=== PATIENT | male | born 1940 | race Caucasian/White ===

== ENCOUNTER 2022-08-20 11:21 | Inpatient (IN) | payer OTHER, MEDICARE ==
[2022-08-20 13:42] VITALS: BP 146/86; PULSE 98
== END 2022-08-25 10:00 | disposition swing bed (61) | DRG 951 ==
LOC: CC.MS 12:32
PROVIDERS: ADMIT Nurse Practitioner Family; ATTEND Nurse Practitioner Family
DX: Z75.5 Holiday relief care (principal); Z66 Do not resuscitate
CPT/HCPCS: 51702

== ENCOUNTER 2022-08-25 10:00 | Inpatient (IN) | payer MEDICARE, OTHER ==
[2022-08-25] MEDS ORDERED: Haloperidol Lactate 2 MG/ML Oral Soln 15 ML Bottle PO PRN (10:48)
[2022-08-25] MEDS ORDERED: LORazepam Conc Solution 2 MG/ML 30 ML Bottle PO PRN (10:49)
[2022-08-25] MEDS ORDERED: Morphine Oral Concentrate 20 MG/ML 30 ML Bottle PO SCH (11:00)
[2022-08-25] MEDS ORDERED: Morphine Oral Concentrate 20 MG/ML 30 ML Bottle PO PRN (11:07)
[2022-08-25] MEDS: Morphine Oral Concentrate 20 MG/ML 30 ML Bottle PO SCH ×3 (13:11→22:56)
[2022-08-25 14:35] VITALS: PULSE 112
[2022-08-26] MEDS: Morphine Oral Concentrate 20 MG/ML 30 ML Bottle PO SCH ×7 (02:04→23:56)
[2022-08-27] MEDS: Morphine Oral Concentrate 20 MG/ML 30 ML Bottle PO SCH ×5 (04:02→20:46)
[2022-08-27] MEDS ORDERED: LORAZEPAM 2 MG/ML PO PRN (10:45)
[2022-08-27] MEDS ORDERED: DOCUSATE SODIUM PO PRN (10:45)
[2022-08-27] MEDS ORDERED: Morphine Oral Concentrate 20 MG/ML 30 ML Bottle PO SCH (10:45)
[2022-08-27] MEDS ORDERED: Ondansetron 4 MG Tab.DIS **PTOM PO PRN (10:45)
[2022-08-27] MEDS ORDERED: Morphine Oral Concentrate 20 MG/ML 30 ML Bottle PO PRN (10:45)
[2022-08-27] MEDS ORDERED: Haloperidol Lactate 2 MG/ML Oral Soln 15 ML Bottle PO PRN (10:45)
[2022-08-27] MEDS ORDERED: SENNOSIDES PO PRN (10:45)
[2022-08-27] MEDS ORDERED: HYOSCYAMINE 0.125 MG PO PRN (10:52)
[2022-08-27] MEDS ORDERED: [UNRECOGNIZED DRUG - OTHER] PO PRN (10:55)
[2022-08-27] MEDS: DEXAMETHASONE 4 MG PO SCH ×2 (14:05→20:51)
[2022-08-27] MEDS: ZOLPIDEM 5 MG PO SCH (20:51)
[2022-08-28] MEDS: Morphine Oral Concentrate 20 MG/ML 30 ML Bottle PO SCH ×6 (00:08→19:41)
[2022-08-28] MEDS: DEXAMETHASONE 4 MG PO SCH ×3 (07:56→19:40)
[2022-08-28] MEDS: ZOLPIDEM 5 MG PO SCH (19:40)
[2022-08-29] MEDS: Morphine Oral Concentrate 20 MG/ML 30 ML Bottle PO SCH (00:08)
== END 2022-08-29 04:25 | disposition expired | DRG 951 ==
LOC: UNDOADMIN 10:00 → CC.MS 10:00
PROVIDERS: ADMIT Nurse Practitioner Family; ATTEND Nurse Practitioner Family
DX: Z51.5 Encounter for palliative care (principal); C71.9 Malignant neoplasm of brain, unspecified; Z79.899 Other long term (current) drug therapy; Z66 Do not resuscitate
CPT/HCPCS: 99306; 99315; A9270-GY